=== PATIENT | male | born 1965 | race Caucasian/White ===

== ENCOUNTER → 2019-05-09 | Outpatient (CLI) | payer OTHER ==
[~2019-05-09] VITALS: Ht 177.8 cm; Wt 114.5 kg
[~2019-05-09] MED LIST: ATENOLOL 50 MG50 M1 PO; PRADAXA150 MG PO; TAMBOCOR 100 M100 M1 PO; XARELTO20 MG PO
--- NOTE | 2019-05-09 08:48 | TEE ---
[facility] [address] [place] [address] TRANSESOPHAGEAL ECHOCARDIOGRAM Name: ROSI CHOUDHARY Room #: REG [facility]#: [id number] Admission: 05/09/19 Attend Phys: Christiano Ayala, Discharge: Date of : 67 Report #: [id number] THIS REPORT FOR: //name// APPROVED REPORT Study performed: 05/09/2019 08:02:13 EXAM: Transesophageal Echocardiogram with Doppler and Cardioversion Patient Location: Out-Patient Room #: 9 Status: routine BSA: 2.30 HR: 104 bpm BP: 113/84 mmHg Rhythm: Atrial Fibrillation Other Information Study Quality: Good Indications Atrial Fibrillation Echo Enhancing Agent Indication: Rule out Shunt Agent(s) / Amount(s) Used: Agitated Saline 7 cc Procedure After obtaining informed consent, patient underwent transesophageal echo in the [employer]. Type of Sedation : Conscious Sedation Sedation was administered by Zay PENN. Sedation was achieved intravenously with: Versed (6 mg) Fentanyl (150 mcg) Transesophageal probe was inserted and advanced into esophagus without difficulty by Christiano Ayala MD. Echo enhancement indication: R/O Septal defect. Echo enhancement agent administered: Agitated Saline The SONAL was performed without complications. Synchronized Cardioversion acheived with 200 Joules after 1 attempt(s). Rhythm following Synchronized Cardioversion: Normal Sinus Rhythm Throughout the procedure, the blood pressure, pulse oximetry, cardiac rhythm, and rate were monitored. The patient tolerated the procedure without adverse effects. Recovery [facility] [address] [address] TRANSESOPHAGEAL ECHOCARDIOGRAM Name: ROSI CHOUDHARY Room #: REG [facility].#: [id number] Admission: 05/09/19 Attend Phys: Christiano Ayala, Discharge: Date of : 67 Report #: [id number] from conscious sedation was uneventful and vital signs were stable. Left Ventricle The left ventricle is normal size. There is normal LV segmental wall motion. There is normal left ventricular wall thickness. The left ventricular systolic function is normal. The left ventricular ejection fraction is within the normal range. LVEF is 55-60%. Right Ventricle The right ventricle is normal size. The right ventricular systolic function is normal. Atria Left atrium is dilated. No thrombus is visualized in the left atrium or appendage. Atrial septal aneurysm with jsbky-tz-osko shunting consistent with a patent foramen ovale Right atrium is dilated. Aortic Valve The aortic valve is normal in structure. No aortic regurgitation is present. There is no aortic valvular stenosis. Mitral Valve The mitral valve is normal in structure. Mild mitral regurgitation. No evidence of mitral valve stenosis. Tricuspid Valve The tricuspid valve is normal in structure. Trace tricuspid regurgitation. Pulmonic Valve The pulmonary valve is normal in structure. There is no pulmonic valvular regurgitation. Great Vessels The aortic root is normal in size. The ascending aorta is normal in size. IVC is normal in size and collapses >50% with inspiration. Pericardium There is no pericardial effusion. <Conclusion> The left ventricular systolic function is normal. There is normal LV segmental wall motion. [facility] [address] [place] [address] TRANSESOPHAGEAL ECHOCARDIOGRAM Name: ROSI CHOUDHARY [facility] #: [facility] [id number] Admission: 05/09/19 Attend Phys: Christiano Ayala, Discharge: Date of : 67 Report #: [id number] LVEF is 55-60%. Both atria are dilated. No thrombus is visualized in the left atrium or appendage. Atrial septal aneurysm with kqwgl-uu-enhi shunting consistent with a patent foramen ovale The aortic valve is normal in structure. No aortic regurgitation or stenosis The mitral valve is normal in structure. Mild mitral regurgitation. There is no pericardial effusion. Successful cardioversion of atrial fibrillation to sinus rhythm following a single 200 J biphasic synchronous joules shock. <ELECTRONICALLY SIGNED> By: Christiano Ayala MD, FACC 05/09/1946 6 6 Christiano Ayala MD, FACC /INF
--- NOTE | 2019-05-11 12:45 | EKG ---
[address] [address] ELECTROCARDIOGRAM REPORT Name: ИРИНАMAURICEBRITNEYT Tete Room #: REG [facility]#: [id number] Admission: 05/09/19 Attend Phys: Christiano Ayala MD, Discharge: Date of : 67 Report #: [id number] THIS REPORT FOR: //name// [facility] Test Date: 2019-05-09 Test Time: 09:03:47 Pat Name: ROSI CHOUDHARY Department: Room: Gender: M Department Specialist: SELMA : 1965 Requested By: Christiano Ayala Order Number: [id number] MD: Christiano Ayala Measurements Intervals [place] Rate: 73 P: 36 NH: 193 QRS: 100 QRSD: 144 T: -3 QT: 417 QTc: 460 Interpretive Statements Sinus rhythm RBBB Compared to ECG 01/26/2012 09:49:58 No significant change was found Electronically Signed On 05-11-2019 12:45:48 [employer] by Christiano Ayala [email or web address] <ELECTRONICALLY SIGNED> By: Christiano Ayala MD, [facility] 05/11/19 1245 D: 11/902 2 Christiano Ayala MD, FACC /EPI
== END | disposition home or self-care (01) ==
LOC: CATH 06:27
DX: I48.91 Unspecified atrial fibrillation (principal); I08.1 Rheumatic disorders of both mitral and tricuspid valves; I25.3 Aneurysm of heart; G47.30 Sleep apnea, unspecified; Z98.890 Other specified postprocedural states; Z90.49 Acquired absence of other specified parts of digestive tract; Z79.01 Long term (current) use of anticoagulants; Z91.040 Latex allergy status; Z79.899 Other long term (current) drug therapy